=== PATIENT | male | born 1985 | race Two or more races ===

== ENCOUNTER 2021-04-28 09:02 | Emergency (ER) | payer OTHER ==
[2021-04-28] MEDS ORDERED: Ibuprofen 600 MG Tab PO ONE (09:08)
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
== END 2021-04-28 10:03 | disposition home or self-care (01) ==
LOC: MW.ED 09:02
DX: M25.512 Pain in left shoulder (principal)
CPT/HCPCS: 73590; 99284; A9270